=== PATIENT | male | born 1985 | race Caucasian/White ===

== ENCOUNTER 2017-06-30 17:05 | Emergency (ER) | payer OTHER ==
[2017-06-30 17:14] VITALS: BP 119/71
--- NOTE | 2017-06-30 17:22 | ED Physician Documentation ---
PD HPI UPPER EXT INJURY - Stated complaint Stated Complaint: SYNCOPAL/RT FINGER LAC - Chief complaint Chief Complaint: Laceration - History obtained from History obtained from: Patient - History of Present Illness Location: Right, Finger (index finger tip) Where injury occurred: Work Timing - onset: Today (he was working and caught fingertip with edge of metal, with some bleeding but wa wearing glove. He went inside to clean off the wound, saw the blood, got lightheaded and fainted. Out briefly and recovered without symptoms.) Timing - details: Abrupt onset Similar symptoms before: Diagnosis (vasovagal syncope with blood couple of other times.) Recently seen: Not recently seen Review of Systems Constitutional: denies: Fever, Chills Cardiac: denies: Chest pain / pressure, Palpitations Respiratory: denies: Dyspnea GI: denies: Vomiting, Diarrhea Neurologic: denies: Headache, Head injury PD PAST MEDICAL HISTORY - Past Medical History Past Medical History: No - Past Surgical History Past Surgical History: Yes Ortho: Arthroscopic surgery HEENT: Tonsil/Adenoidectomy - Present Medications Home Medications: Ambulatory Orders Medication Instructions Recorded Confirmed No Known Home Medications [No 06/30/17 06/30/17 Known Home Medications] - Allergies Allergies/Adverse Reactions: Allergies Allergy/AdvReac Type Severity Reaction Status Date / Time No Known Drug Allergies Allergy Verified 06/30/17 17:14 - Social History Does the pt smoke?: Yes Smoking Status: Current every day smoker Does the pt drink ETOH?: Yes Does the pt have substance abuse?: No - Immunizations Immunizations are current?: Yes PD ED PE NORMAL - Vitals Vital signs reviewed: Yes - General General: Alert and oriented X 3, No acute distress, Well developed/nourished - HEENT HEENT: Atraumatic - Neck Neck: Supple, no meningeal sign, No adenopathy - Cardiac Cardiac: RRR, No murmur - Derm Derm: Normal color, Warm and dry - Extremities Extremities: Other (right index finger tip with 1/2 cm diameter partial thickness avulsion of skin. Not in nailbed. 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 Does not need sutures/etc. SOunds like common vasovagal syncope otherwise. ), d/w patient Departure - Departure Disposition: 01 Home, Self Care Clinical Impression: Avulsion of finger Qualifiers: Encounter type: initial encounter Qualified Code(s): S61.209A - Unspecified open wound of unspecified finger without damage to nail, initial encounter Condition: Stable Record reviewed to determine appropriate education?: Yes Instructions: ED Avulsion Dermal Follow-Up: [facility] [Provider Group] Comments: Clean the wound twice a day and apply ointment and Band-Aid. Should heal over a week or so. Recheck if signs of infection. Tylenol or ibuprofen if needed for pain. Discharge Date/Time: 06/30/17 18:00
== END 2017-06-30 18:00 | disposition home or self-care (01) ==
LOC: ED 17:05
DX: S61.210A Laceration without foreign body of right index finger without damage to nail, initial encounter (principal); W26.8XXA Contact with other sharp object(s), not elsewhere classified, initial encounter; Y92.89 Other specified places as the place of occurrence of the external cause; Y99.0 Civilian activity done for income or pay; F17.200 Nicotine dependence, unspecified, uncomplicated
CPT/HCPCS: 99282; 99283

== ENCOUNTER 2018-07-10 18:09 | Emergency (ER) | payer OTHER ==
[2018-07-10 18:19] VITALS: BP 130/79
--- NOTE | 2018-07-10 18:34 | ED Physician Documentation ---
PD HPI UPPER EXT INJURY - Stated complaint Stated Complaint: ELECTRIC SHOCK - Chief complaint Chief Complaint: Ext Problem - History obtained from History obtained from: Patient - History of Present Illness Location: Left, Finger (index) Type of injury: Other (he was attempting to change electric outlet without turning off circuit breaker. Screwdriver got electric impulse and caused burn to index finger. Patient says hand spasmed for few seconds then he was able to let go of the tool. Thornton some tingling in hand. Denies diffuse symptoms, near syncope, nor prolonged contact.) Where injury occurred: Home Timing - onset: Last night Timing - details: Abrupt onset, Still present (still some soreness in finger. He was told to have it checked in ER due to "electrocuted".) Review of Systems Musculoskeletal: reports: Extremity pain (some aching in finger. No pain in forearm.) Neurologic: denies: Focal weakness, Numbness PD PAST MEDICAL HISTORY - Past Medical History Past Medical History: No Respiratory: None Neuro: None - Past Surgical History Past Surgical History: Yes Ortho: Shoulder arthroplasty, Arthroscopic surgery HEENT: Tonsil/Adenoidectomy - Present Medications Home Medications: Ambulatory Orders Medication Instructions Recorded Confirmed No Known Home Medications 06/30/17 07/10/18 - Allergies Allergies/Adverse Reactions: Allergies Allergy/AdvReac Type Severity Reaction Status Date / Time No Known Drug Allergies Allergy Verified 07/10/18 18:18 - Social History Does the pt smoke?: No Smoking Status: Former smoker Does the pt drink ETOH?: Yes Does the pt have substance abuse?: No - Immunizations Immunizations are current?: Yes PD ED PE NORMAL - Vitals Vital signs reviewed: Yes - General General: Alert and oriented X 3, No acute distress, Well developed/nourished - Cardiac Cardiac: RRR, No murmur - Respiratory Respiratory: Clear bilaterally - Derm Derm: Normal color, Warm and dry - Extremities Extremities: Other (left index finger with small area of burn/lac about 1/2 cm. ROM of the finger present. No forearm tenderness. ) Results - Vitals Vitals: Vital Signs - 24 hr 07/10/18 18:16 Temperature 36.4 C L Heart Rate 69 Respiratory 18 Rate Blood Pressure 130/79 O2 Saturation 99 Oxygen O2 Source Room air PD MEDICAL DECISION MAKING - ED course Complexity details: considered differential (does not sound like significant exposure/contact for concern of rhabdo or such.), d/w patient Departure - Departure Disposition: 01 Home, Self Care Clinical Impression: Electrical burn of skin Condition: Stable Record reviewed to determine appropriate education?: Yes Instructions: ED Laceration Hand Follow-Up: [facility] [Provider Group] Comments: Cleanse the wound with soap and water couple times a day and apply some ointment. Use a Band-Aid for it to protect it and keep it clean. Otherwise recheck if signs of infection. There is no particular treatment or injury for the electrical exposure. You might be sore in the hand for couple of days. Discharge Date/Time: 07/10/18 19:16
== END 2018-07-10 19:16 | disposition home or self-care (01) ==
LOC: ED 18:09
DX: T75.4XXA Electrocution, initial encounter (principal); T23.022A Burn of unspecified degree of single left finger (nail) except thumb, initial encounter; T31.0 Burns involving less than 10% of body surface; W86.0XXA Exposure to domestic wiring and appliances, initial encounter; Y92.009 Unspecified place in unspecified non-institutional (private) residence as the place of occurrence of the external cause; Z87.891 Personal history of nicotine dependence
CPT/HCPCS: 99282

== ENCOUNTER 2019-07-17 11:58 | Emergency (ER) | payer OTHER ==
--- NOTE | 2019-07-17 13:08 | ED Physician Documentation ---
PD HPI BACK INJURY - Stated complaint Stated Complaint: BACK PX - History obtained from History obtained from: Patient - History of Present Illness Location: Left, Lower Type of injury: Twist (he was bending and lifting heavy object to move it to the right and felt onset of left lower back pain, which has continued to hurt and feel tight. NO leg pain, numbness, weakness.) Where injury occurred: Work Timing - onset: Yesterday Timing - details: Abrupt onset, Still present Worsened by: Moving, Palpating Associated symptoms: No: Weakness, Numbness, Incontinent of urine Similar symptoms before: No diagnosis (has had episodic low back pain/strain; no ongoing back problems.) Review of Systems Constitutional: denies: Fever, Chills Nose: denies: Rhinorrhea / runny nose, Congestion Throat: denies: Sore throat Respiratory: denies: Cough : denies: Incontinent Neurologic: denies: Focal weakness, Numbness PD PAST MEDICAL HISTORY - Past Medical History Respiratory: None Neuro: None Musculoskeletal: None - Past Surgical History Past Surgical History: Yes Ortho: Shoulder arthroplasty, Arthroscopic surgery HEENT: Tonsil/Adenoidectomy - Present Medications Home Medications: Ambulatory Orders Medication Instructions Recorded Confirmed Hydrocodone/Acetaminophen 1 each PO Q6H PRN #16 tablet 07/17/19 [Hydrocodon-Acetaminophen 5-325] Naproxen 500 mg PO BID #20 tablet 07/17/19 Omeprazole Magnesium [Prilosec] 07/17/19 Tizanidine HCl 4 mg PO TID PRN #25 capsule 07/17/19 dexAMETHasone [Decadron] 4 mg PO DAILY #5 tablet 07/17/19 - Allergies Allergies/Adverse Reactions: Allergies Allergy/AdvReac Type Severity Reaction Status Date / Time No Known Drug Allergies Allergy Verified 07/10/18 18:18 - Social History Does the pt smoke?: No Smoking Status: Never smoker Does the pt drink ETOH?: Yes Does the pt have substance abuse?: No - Immunizations Immunizations are current?: Yes PD ED PE NORMAL - Vitals Vital signs reviewed: Yes - General General: Alert and oriented X 3, Well developed/nourished, Other (appears uncomfortable with guarded ROM of the low back. ) - Abdomen Abdomen: Soft, Non tender - Derm Derm: Normal color, Warm and dry - Extremities Extremities: Normal ROM s pain - Neuro Neuro: Alert and oriented X 3, No motor deficit, No sensory deficit, Normal speech, Other (normal knee reflexes) Results - Vitals Vitals: Vital Signs - 24 hr 07/17/19 07/17/19 12:22 14:27 Temperature 36.8 C Heart Rate 61 59 L Respiratory 18 18 Rate Blood Pressure 115/63 125/72 O2 Saturation 99 100 Oxygen O2 Source Room air PD MEDICAL DECISION MAKING - ED course Complexity details: considered differential (episodic low back pain with injury, no red flags and hurting in left lumbar muscle at iliac crest. ), d/w patient Departure - Departure Disposition: Home, Self Care Clinical Impression: Low back strain Qualifiers: Encounter type: initial encounter Qualified Code(s): S39.012A - Strain of muscle, fascia and tendon of lower back, initial encounter Condition: Stable Record reviewed to determine appropriate education?: Yes Instructions: ED Sprain Strain Lumbar Follow-Up: [facility] [Provider Group] Prescriptions: dexAMETHasone [Decadron] 4 mg PO DAILY #5 tablet Hydrocodone/Acetaminophen [Hydrocodon-Acetaminophen 5-325] 1 each PO Q6H PRN #16 tablet PRN Reason: pain Naproxen 500 mg PO BID #20 tablet Tizanidine HCl 4 mg PO TID PRN #25 capsule PRN Reason: Spasms Comments: Heat and stretching for the low back. Anti-inflammatories such as naproxen twice daily for the next 7 to 10 days. Decadron steroid anti-inflammatory as well daily for 5 days. Add tizanidine muscle relaxant for stiffness and spasm. Add Tylenol or hydrocodone as needed for pain. Off work for today tomorrow and then several days of light lifting and bending. Follow-up with your primary care in a few days. Forms: Activity restrictions Discharge Date/Time: 07/17/19 14:27
[2019-07-17] MEDS ORDERED: IBUPROFEN 600 MG TABLET PO STA (13:32)
[2019-07-17] MEDS ORDERED: METHOCARBAMOL 500 MG TABLET PO STA (13:32)
[2019-07-17] MEDS ORDERED: CHERRY SYRUP 10 ML UDC PO ONE (13:32)
[2019-07-17] MEDS ORDERED: ACETAMINOPHEN 325 MG TABLET PO STA (13:32)
[2019-07-17] MEDS ORDERED: DEXAMETHASONE 10 MG/ML VIAL PO STA (13:32)
[2019-07-17 14:28] VITALS: BP 125/72
== END 2019-07-17 14:27 | disposition home or self-care (01) ==
LOC: ED 11:58
DX: S39.012A Strain of muscle, fascia and tendon of lower back, initial encounter (principal); X50.0XXA Overexertion from strenuous movement or load, initial encounter; Y93.89 Activity, other specified; Y99.0 Civilian activity done for income or pay
CPT/HCPCS: 99284; A9270